=== PATIENT | female | born 1975 | race Caucasian/White ===

== ENCOUNTER 2024-08-12 08:01 | Outpatient (REF) | payer OTHER, SELFPAY | END 2024-08-12 08:02 | disposition home or self-care (01) | LOC: HO.XRAY 08:01 | PROVIDERS: Visit Provider Physician Assistant | DX: M25.522 Pain in left elbow (principal) | CPT/HCPCS: 73080 ==

== ENCOUNTER → 2024-08-12 08:07 | Outpatient (BNV) | payer OTHER, SELFPAY | PROVIDERS: Visit Provider Radiology Diagnostic Radiology | DX: M25.522 Pain in left elbow (principal) | CPT/HCPCS: 73080 ==

== ENCOUNTER 2024-08-12 08:28 | Outpatient (AMB) | payer OTHER, SELFPAY ==
--- NOTE | 2024-08-12 08:35 | MHC.OFFVIS ---
Intake Visit Reasons: FC - Left radial head fx,WC 07/19/24 Intake Note: Emy is a 49 year old right hand dominant female who presents today for a evaluation of her left radial head fx, DOI 07/19/24. Patient reports she was at work taking her trash out and she was walking towards the trash bin and slipped on black ice. She mentions still having pain in her elbow her pain level is a 7/10 on the pain scale today. Patient is also having pain and tingling sensation in her back and lower back. Patient had tried Tylenol and Motrin with mild relief. Allergies No Known Allergies Allergy (Verified 08/12/24 08:40) HPI HPI FC - Left radial head fx,WC 07/19/24: Details: Ms. Harris is a 49-year-old female who presents to the office today after a slip and fall on black ice on 07/19/2024. She reports that she hit her lower back and left elbow. She is right-hand dominant. She has had some soreness about the left elbow since the date of injury. She was seen at an urgent care office where she was told that she had a radial head fracture and to follow up with orthopedics for further evaluation and treatment. 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 Tenderness to palpation over the lateral epicondyle. Able to perform full flexion, extension, pronation and supination without limitations. NVI. Assessment & Plan Assessment & Plan (1) Avulsion fracture of bone: Code(s): T14.8XXA - Other injury of unspecified body region, initial encounter Category: Medical (2) Left elbow contusion: Code(s): S50.02XA - Contusion of left elbow, initial encounter Category: Medical Plan Ms. Harris is a 49-year-old female who presents to the office today after a slip and fall on black ice on 07/19/2024. She reports that she hit her lower back and left elbow. She is right-hand dominant. She has had some soreness about the left elbow since the date of injury. She was seen at an urgent care office where she was told that she had a radial head fracture and to follow up with orthopedics for further evaluation and treatment. 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 While the office today I discussed the role of performing gentle range of motion. Patient does have full range of motion in all planes in regards to the left elbow. I did provide her with a work note for light duty no lifting pushing or pulling greater than 2-5 lb for the next 4 weeks. I would like to see her in 4 weeks repeat x-rays, sooner if needed. X-rays of the left elbow which were obtained while in the office today and were reviewed by me, Melani Beltran PA-C, revealed an avulsion fracture of the proximal ulna. Orders: Orders XR elbow LT min 3V Today M25.529 - Pain in unspecified elbow Coding Level of Care Code New Pt Level 4 (12744) Diagnoses Avulsion fracture of bone T14.8XXA Left elbow contusion S50.02XA
--- OUTSIDE RECORDS SUMMARY | 2024-08-12 08:42 | XMS_ITS | Clinical Summary ---
Author Organization [facility] Address [address] [place] [address] Care Team Providers Care Career Services Representative Name Role Phone Anna Bailey MD Primary Care Prov ider Allergies Active Allergy Reactions Criticality Noted Date Comments Cat Dander 02/27/2013 Dog Dander 02/27/2013 Other 02/27/2013 Seasonal Allergies Medications naproxen (NAPROSYN) 250 mg tablet Take 1 tablet by mouth 2 times daily (with meals). 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-MRI recommended Hypercholesteremia 12/09/2009 Allergic rhinitis 10/23/2009 GERD (gastroesophageal reflux disease) 0 Morbid obesity 10/23/2009 Immunizations Name Administration Dates Next Due Hepatitis B (Aziyepa-C-Eknpa , Recombivax HB-Adult) 19yo and older 07/05/2021,02/09/2014,01/08/2014,2009 Influenza trivalent, with preservative (Fluzone; Afluria) 6mo and older 04/06/2021 MMR, measles mumps and rubel la Live (Priorix; M-M-R II) 12mo and older 12/09/2009 Td Tetanus diptheria (Tdvax) 7yo and older 09/13/2020 Tdap Tetanus diptheria acell ular pertussis (Boostrix; Adacel) 7yo and older 10/22/2009 Surgical History Surgery Date Site/Laterality Comments TUBAL LIGATION 1997 PROCEDURE: HISTORICAL TUBAL LIGATION WISDOM TOOTH EXTRACTION PROCEDURE: HISTORICAL WISDOM TEETH EXTRACTION Medical History Medical History Date Comments 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/04/2017 DX:Ajay fair of basal ganglia; COMMENT: 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-MRI recommended Covid-19 DX:COVID-19 Family History Medical History Relation Name Comments Hypertension Father ?depression Other: hep c Father Depression Mother polyps Other cancer Paternal Grandmother metasta tic unknown primary Colon polyps Sister Relation Name Status Comments Brother Alive Daughter Alive Father Alive Maternal Grandfather Maternal Grandmother Mother Alive Paternal Grandfather Paternal Grandmother Sister Alive Son Alive Social History Tobacco Use Types Packs/Day Years Used Date Smoking Tobacco: Never Smokeless Tobacco: Never Alcohol Use Standard Drinks/Week Comments Yes 0 (1 standard drink = 0.6 oz pur e alcohol) Comments Unknown Sex and Gender Information Value Date Recorded Sex Assigned at Not on file Legal Sex Female 3:00 PM EST Gender Identity Not on file Sexual Orientation Not on file Obstetrics History Plan of Treatment Health Maintenance Due Date Last Done Comments DTaP,Tdap,and Td Vaccines (3 - Td or Tdap) 03/16/2021 09/13/2020, 10/22/2009 Colorectal Cancer Screening: Colonoscopy 05/31/2022 Depression Screening 05/31/2022 Social Influencers of Health Screening 05/31/2022 Breast Cancer Screening 11/03/2022 11/03/2020 Pneumococcal Vaccine: 50+ Years (1 of 1 - PCV) 2023 Zoster Vaccines (1 of 2) 2023 COVID-19 Vaccine (3 - 2023- season) 2024 07/27/2020, 07/06/2020 Influenza Vaccine (#1) 2024 04/06/2021 Cholesterol Screening (Lipid Panel) 09/13/2025 09/13/2020 Cervical Cancer Screening: HPV 10/26/2025 10/26/2020 MMR Vaccines Aged Out 12/09/2009 No longer eligi ble based on patient's age to complete this topic HIV Screening Completed 10/26/2020 Hepatitis C Screening Completed 10/26/2020 Hepatitis B Vaccines Completed 07/05/2021, 02/09/2014, 01/08/2014, Additional history exists HIB Vaccines Aged Out No longer eligi ble based on patient's age to complete this topic HPV Vaccines Aged Out No longer eligi ble based on patient's age to complete this topic Hepatitis A Vaccines Aged Out No long er eligible based on patient's age to complete this topic IPV Vaccines Aged Out No longer eligi ble based on patient's age to complete this topic Meningococcal ACWY Vaccine Aged Out N o longer eligible based on patient's age to complete this topic Meningococcal B Vacine Aged Out No lo nger eligible based on patient's age to complete this topic Pneumococcal Vaccine: Pediatrics (0 to 5 Years) and At-Risk Patients (6 to 64 Years) Aged Out No longer eligible based on patient's age to complete this topic RSV Immunization Patients Under 20 months Aged Out No longer eligible based on patient's age to complete this topic Varicella Vaccines Aged Out No longer eligible based on patient's age to complete this topic Procedures Procedure Name Priority Date/Time Associated Diagnosis Comments SCR MAMMO BI INCL CAD Routine 11/03/2020 10:02 AM EDT Encounter for screening mammogram for malignant neoplasm of breast HPV Routine 10/26/2020 HEPATITIS C SCREENING Routine 10/26/2020 HIV SCREENING Routine 10/26/2020 LIPID PANEL Routine 09/13/2020 from Last 3 Months or Most Recently Relevant to Health Maintenance Results * SCR MAMMO BI INCL CAD (11/03/2020 10:02 AM EDT) Anatomical Region Laterality Modality Radiographic Soraida ging 09/13/2020 9:34 AM EDT Narrative 11/04/2020 9:13 AM EDT This is a summary report. The complete report is available in the patient's medical record. If you cannot access the medical record, please contact the sending organization for a detailed fax or copy. Baseline screening, full field digital mammography, reviewed with CAD. ??The breasts are composed of fatty and fibroglandular tissue. ??No suspicious mass, architectural distortion or suspicious calcifications are identified. IMPRESSION: : No mammographic evidence of malignancy. BIRADS 1-Negative; N. 5 year breast cancer risk assessment 1.0 % Lifetime breast cancer risk assessment 10.3 % Breast cancer risk category Low (<15%) Procedure Note Lily Venegas MD - 06/20/2022 This is a summary report. The complete report is available in thepatient's medical record. If you cannot access the medical record, pleasecontact the sending organization for a detailed fax or copy. Baseline screening, full field digital mammography, reviewed with CAD.The breasts are composed of fatty and fibroglandular tissue. Nosuspicious mass, architectural distortion or suspicious calcifications areidentified. IMPRESSION: : No mammographic evidence of malignancy. BIRADS 1-Negative; N. 5 year breast cancer risk assessment 1.0 % Lifetime breast cancer risk assessment 10.3 % Breast cancer risk category Low (<15%) Result [facility] Yoanna De La Paz WINDOWS SYSTEMS ENGINEER IMG XR PROCEDURES Final Resul t * Cervical Cancer Screening: HPV (10/26/2020) [facility] Cervical Cancer Screening: HPV negative, abstracted Result [facility] Final Result * HIV Screening (10/26/2020) [facility] HIV Screening abstracted Result [facility] Final Result * Hepatitis C Screening (10/26/2020) [facility] Hepatitis C Screening abstracted Result [facility] Final Result * (ABNORMAL) Lipid panel (09/13/2020) [facility] LDL/HDL Ratio 3 0 - 4 Triglycerides 105 0 - 150 mg/dL Cholesterol 179 0 - 200 mg/dL HDL 57 >=40 mg/dL LDL Cholesterol 101(A) 0 - 100 mg/dL Blood Venous blood specimen / Unknown Result [facility] LAB BLOOD ORDERABLES Xiao l Result from Last 3 Months or Most Recently Relevant to Health Maintenance Care Teams Career Services Representative Relationship Specialty Start Date End Date Anna Bailey MD PCP - General Internal Medicine 12/30/20
== END 2024-08-12 11:14 | disposition home or self-care (01) ==
PROVIDERS: PCP Internal Medicine; Visit Provider Physician Assistant
DX: S50.02XA Contusion of left elbow, initial encounter (principal); S52.002A Unspecified fracture of upper end of left ulna, initial encounter for closed fracture; W00.0XXA Fall on same level due to ice and snow, initial encounter; Z04.2 Encounter for examination and observation following work accident
CPT/HCPCS: 99204

== ENCOUNTER 2024-09-11 09:07 | Outpatient (REF) | payer OTHER, SELFPAY ==
--- NOTE | ~2024-09-11 | XR_ITS ---
EXAMINATION: XR ELBOW, LEFT CLINICAL INFORMATION: M25.529 - Pain in unspecified elbow COMPARISON: 08/12/2024 TECHNIQUE: AP, lateral, and oblique views of the left elbow. FINDINGS: No fracture, dislocation, or suspicious bone lesion. Normal bone mineralization. Normal alignment. Minimal spurring of the coronoid process. Joint spaces are preserved. Epicondyles appear normal. No joint effusion. Soft tissues appear normal. XR/XR elbow LT min 3V IMPRESSION: No acute findings left elbow. No change. Electronically signed by: Harman Piña MD 09/11/2024 10:48 AM EDT
--- OUTSIDE RECORDS SUMMARY | 2024-09-12 09:43 | XMS_ITS | Clinical Summary ---
Author Organization [facility] Address [address] [place] [address] Care Team Providers Care Fha Underwriter Name Role Phone Anna Bailey MD Primary [...] Name Administration Dates Next Due Hepatitis B (Ftyzyae-Q-Qaxmw , Recombivax HB-Adult) 19yo and older 07/05/2021,02/09/2014,01/08/2014,2009 [...] Breast cancer risk category Low (<15%) Result [facility] Yoanna De La Paz LODGING FACILITIES MANAGER IMG XR PROCEDURES Final Resul t * Cervical Cancer Screening: HPV (10/26/2020) [facility] Cervical Cancer Screening: HPV negative, abstracted Result [facility] MAINTENANCE Final Result * HIV Screening (10/26/2020) [facility] HIV Screening abstracted Result [facility] MAINTENANCE Final Result * Hepatitis C Screening (10/26/2020) [facility] Hepatitis C Screening abstracted Result [facility] MAINTENA[facility]CE Final Result * (ABNORMAL) Lipid panel (09/13/2020) [facility] LDL/HDL Ratio 3 0 - 4 Triglycerides 105 0 - 150 mg/dL Cholesterol 179 0 - 200 mg/dL HDL 57 >=40 mg/dL LDL Cholesterol 101(A) 0 - 100 mg/dL Blood Venous blood specimen / Unknown Result [facility] LAB BLOOD ORDERABLES Xiao l Result from Last 3 Months or Most Recently Relevant to Health Maintenance Care Teams Fha Underwriter Relationship Specialty Start Date End Date Anna Bailey MD PCP - General Internal Medicine 12/30/20
== END 2024-09-11 09:08 | disposition home or self-care (01) ==
LOC: HO.HOSX 09:07
PROVIDERS: Visit Provider Physician Assistant
DX: S52.122D Displaced fracture of head of left radius, subsequent encounter for closed fracture with routine healing (principal); S50.02XD Contusion of left elbow, subsequent encounter
CPT/HCPCS: 73080; 99212

== ENCOUNTER 2024-09-11 09:37 | Outpatient (AMB) | payer OTHER, SELFPAY ==
--- NOTE | 2024-09-11 09:49 | A.OFFVIS_ITS ---
Intake Visit Reasons: OV-Left radial head fx,WC 07/19/24-w/xrays Intake Note: Emy is a 49 year old right hand dominant female who presents today for a evaluation of her left Avulsion fracture radial head fx, DOI 07/19/24. Patient reports her pain has been off and on depending on what so does. She mentions th at her pain is a 5/10 on the pain scale. Allergies No Known Allergies Allergy (Verified 09/11/24 09:54) HPI HPI OV-Left radial head fx,WC 07/19/24-w/xrays: Details: Ms. Harris is a right-hand dominant 49-year-old female who presents to the office today for routine follow-up status post left proximal ulnar avulsion fracture that occurred on . This is a workman's comp injury. Since her last appointment, she reports that her pain has been gradually improving and she has minimal difficulty with range of motion. She does have occasional pain dependent on activity level. Overall she is doing very well. 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 No tenderness to palpation over the lateral epicondyle. Able to perform full flexion, extension, pronation and supination without limitations. NVI. Assessment & Plan Assessment & Plan (1) Avulsion fracture of bone: Code(s): T14.8XXA - Other injury of unspecified body region, initial encounter Category: Medical (2) Left elbow contusion: Code(s): S50.02XA - Contusion of left elbow, initial encounter Category: Medical Plan Ms. Harris is a 49-year-old female who presents to the office today after a slip and fall on black ice on 07/19/2024. She reports that she hit her lower back and left elbow. She is right-hand dominant. Since her last appointment the patient has been performing gentle range of motion. Patient does have full range of motion in all planes in regards to the left elbow. She feels as though her symptoms are improving. We discussed the role of physical therapy however the patient has full range of motion and her symptoms are improving therefore this has been deferred at this time. I did provide her a work note to remain out of work for the next 2 weeks and then she can return back full-time regular duty. X-rays of the left elbow which were obtained while in the office today and were reviewed by me, Melani Beltran PA-C, revealed an avulsion fracture of the proximal ulna with routine healing. Orders: Orders XR elbow LT min 3V Today M25.529 - Pain in unspecified elbow Coding Level of Care Code Est Pt Level 3 (75520) Diagnoses Avulsion fracture of bone T14.8XXA Left elbow contusion S50.02XA
--- OUTSIDE RECORDS SUMMARY | 2024-09-11 11:31 | XMS_ITS | Encounter Summary ---
Author Organization [facility] Address [address] [place] [address] Care Team Providers Care Bail Bond Agent Name Role Phone Luca Antonio MD Primary Care Provider Unavailable Elda Acosta MD Primary Care Provider Unavaila benjamin Bailey Ch MD Primary Care Provider [phone] Encounter Details Date Type Department Care Team Description 11/06/2016 Release of Information Medical Records [address] [place] [id number] Abstract, Provider Social History Tobacco Use Types Packs/Day Years Used Date Smoking Tobacco: Never Smokeless Tobacco: Never Alcohol Use Standard Drinks/Week Comments Yes 0 (1 standard drink = 0.6 oz pur e alcohol) once weekly- 2 drinks Alcohol Habits Answer Date Recorded How often do you have a drink containing alcohol ? 2-4 times a month 09/13/2020 How many drinks containing a lcohol do you have on a typical day when you are drinking? 1 or 2 09/13/2020 How often do you have six or more drinks on one occasion? Never 09/13/2020 Social Isolation Answer Date Recorded In a typical week, how many times do you talk on the phone with family, friends, or neighbors? Twice a week 09/13/2020 How often do you get together with friends or re latives? Twice a week 09/13/2020 How often do you attend anglican or protestant serv ices? Not asked Do you belong to any clubs o r organizations such as anglican groups, unions, fraternal or athletic groups, or school groups? Not asked How often do you attend meet ings of the clubs or organizations you belong to? Not asked Are you now , , , , never or living with a partner? Not asked Physical Activity Answer Date Recorded On average, how many days pe r week do you engage in moderate to strenuous exercise (like walking fast, running, jogging, dancing, swimming, biking, or other activities that cause a light or heavy sweat)? 0 days 09/13/2020 On average, how many minutes do you engage in exercise at this level? 0 min 09/13/2020 Stress Answer Date Recorded Do you feel stress - tense, restless, nervous, or anxious, or unable to sleep at night because your mind is troubled all the time - these days? To some extent 09/13/2020 Financial Resource Strain Answer Date R ecorded How hard is it for you to pa y for the very basics like food, housing, medical care, and heating? Not hard at all 09/13/2020 Intimate Partner Violence Answer Date R ecorded Within the last year, have y ou been afraid of your partner or ex-partner? No 09/13/2020 Within the last year, have y ou been humiliated or emotionally abused in other ways by your partner or ex-partner? No Within the last year, have y ou been kicked, hit, slapped, or otherwise physically hurt by your partner or ex-partner? No 09/13/2020 Within the last year, have y ou been raped or forced to have any kind of sexual activity by your partner or ex-partner? No 09/13/2020 Food Insecurity Answer Date Recorded Within the past 12 months, y ou worried that your food would run out before you got money to buy more. Never true 09/13/2020 Within the past 12 months, t he food you bought just didn't last and you didn't have money to get more. Never true 09/13/2020 Transportation Needs Answer Date Record ed In the past 12 months, has l ack of transportation kept you from medical appointments or from getting medications? No 08/30 In the past 12 months, has l ack of transportation kept you from meetings, work, or getting things needed for daily living? No 09/13/2020 Sex Assigned at Date Recorded Not on file documented as of this encounter Plan of Treatment Not on file documented as of this encounter Visit Diagnoses Not on filedocumented in this encounter Care Teams Bail Bond Agent Relationship Specialty Start Date End Date Luca Antonio MD PCP - General Internal Medicine 10/05/1601/31 Elda Acosta MD PCP - General Internal Medicine 02/27/19 12/29/20 Melissa Bailey MD [address] [place] [id number] PCP - General Internal Medicine 12/30/20 documented as of this encounter
--- OUTSIDE RECORDS SUMMARY | 2024-09-11 11:31 | XMS_ITS | Encounter Summary ---
Author Organization [facility] Address [address] [place] [address] Care Team Providers Care Environmental Marketer Name Role Phone Elda Acosta MD Primary Care Provider Kong Coleman MD Primary Care Provider Luca Crawford MD Primary Care Provider Unavailable Elda Acosta MD Primary Care Provider Kandace Bailey Ch MD Primary Care Provider [phone] Reason for Visit * Reason Comments E-prescribe Rx Request Encounter Details Date Type Department Care Team Description 10/10/2015 Refill Adult Medicine [facility] [address] [place] [address] Ernie Bowman PA-C [address] [place] [address] E-prescribe Rx Request Social History Tobacco Use Types Packs/Day Years [...] week 09/13/2020 How often do you attend adventist or evangelical serv ices? Not asked Do you belong to any clubs o r organizations such as adventist groups, unions, fraternal or athletic groups, or [...] on file documented as of this encounter Miscellaneous Notes * Telephone Encounter - Shireen Mistry - 10/11/2015 4:25 PM EDT Lmom for pt to call and schedule a f/u appt * Telephone Encounter - Elda Acosta MD - 10/11/2015 4:07 PM EDT I have not prescribed this for her and she should not continue this without follow up for her safety. I have not seen her since 2013 and suggest she schedule a follow up. Can use otc aleve which is lower dose and less side effects until appointment. Please advise * Telephone Encounter - Shireen Mistry - 10/11/2015 10:32 AM EDT Patient would like script to be: E-PRESCRIBED/FAXED TO PHARMACY WHEN WAS THE PATIENT'S LAST APPOINTMENT IN ADULT MEDICINE? 05-25-2015 WHEN WAS THE LAST TIME THE PATIENT SAW THEIR PCP? 01-08-2014 Does patient have an upcoming appointment? Yes 12-08-2015 (THE MEDICATION REQUESTED IS ON THE MED LIST ABOVE) All of the medications requested were on the CURRENT MEDS list Did you check the Pharmacy information above?: YES Patient wants: 30 -day supply Is this a mail order prescription request ? NO Patients current insurance carrier is: Payor: [email or web address] FFS / Plan: FFS HMO $0 [id number] / Product Type: MEDICAID RISK documented in this encounter Plan of Treatment Not on file documented as of this encounter Visit Diagnoses Not on filedocumented in this encounter Care Teams Environmental Marketer Relationship Specialty Start Date End Date Elda Acosta MD PCP - General 01/11/09 07/01/16 Kong Javier MD PCP - General Cardiovascular Disease 07/02/16 Luca Antonio MD PCP - General Internal Medicine 10/05/1601/31 Elda Acosta MD PCP - General Internal Medicine 02/27/19 12/29/20 Melissa Bailey MD [address] [place] [id number] PCP - General Internal Medicine 12/30/20 documented as of this encounter
--- OUTSIDE RECORDS SUMMARY | 2024-09-11 11:32 | XMS_ITS ---
Author Name [facility] Organization Unknown Encounters Encounter Type Encounter Reason Primary Diagnosis Location Date Ambulatory [facility] [place] 08/05/2024 Ambulatory [facility] [place] 08/04/2024 Ambulatory [facility] [place] 08/04/2024 Ambulatory [facility] [place] 08/04/2024
--- OUTSIDE RECORDS SUMMARY | 2024-09-11 11:32 | XMS_ITS | Encounter Summary ---
Author Organization [facility] Address [address] [place] [address] Care Team Providers Care Industrial Hygenist Name Role Phone Elda Acosta MD Primary Care Provider Kandace Bailey Ch MD Primary Care Provider [phone] Encounter Details Date Type Department Care Team Description 02/25/2020 Night Triage Doc Medical Records [address] [place] [address] Abstract, Provider Social History Tobacco Use Types [...] week 09/13/2020 How often do you attend buddhist or scientology serv ices? Not asked Do you belong to any clubs o r organizations such as buddhist groups, unions, fraternal or athletic groups, or [...] on filedocumented in this encounter Care Teams Industrial Hygenist Relationship Specialty Start Date End Date Elda Acosta MD PCP - General Internal Medicine 02/27/19 12/29/20 Melissa Bailey MD [address] [place] [id number] PCP - General Internal Medicine 12/30/20 documented as of this encounter
--- OUTSIDE RECORDS SUMMARY | 2024-09-11 11:32 | XMS_ITS | Encounter Summary ---
Author Organization [facility] Address [address] [place] [address] Care Team Providers Care Icer Hand Name Role Phone Luac Antonio MD Primary Care Provider Unavailable Elda Acosta MD Primary Care Provider Unavaila benjamin Bailey Ch MD Primary Care Provider [phone] [phone] Reason for Visit * Reason Onset Date Comments REFERRAL 01/20/2019 Podiatry Encounter Details Date Type Department Care Team Description 01/20/2019 Telephone Podiatry - [address] [address] Luca Antonio MD REFERRAL (Podiatry) Social History Tobacco Use Types Packs/Day Years [...] week 09/13/2020 How often do you attend mormon or baptism serv ices? Not asked Do you belong to any clubs o r organizations such as mormon groups, unions, fraternal or athletic groups, or [...] encounter Miscellaneous Notes * Telephone Encounter - Vilma Osorio - 01/20/2019 2:45 PM EDT Patient has urgent referral to podiatry and needs to be referred out for closer appointment-see referral, thank you documented in this encounter Plan of Treatment Not on file documented as of this encounter Visit Diagnoses Not on filedocumented in this encounter Care Teams Icer Hand Relationship Specialty Start Date End Date Luca Antonio MD PCP - General Internal Medicine 10/05/1601/31 Elda Acosta MD PCP - General Internal Medicine 02/27/19 12/29/20 Melissa Bailey MD [facility] [place] [address] PCP - General Internal Medicine 12/30/20 documented as of this encounter
--- OUTSIDE RECORDS SUMMARY | 2024-09-11 11:32 | XMS_ITS | Encounter Summary ---
Author Organization [facility] Address [address] [place] [address] Care Team Providers Care Tinsel Machine Operator Name Role Phone Melissa Bailey MD Primary Care Provider [phone] [phone] Reason for Visit * Reason Onset Date Comments Work note 01/25/2021 Encounter Details Date Type Department Care Team Description 01/25/2021 Telephone Adult Medicine [facility] [address] [place] [address] Melissa Bailey, [address] [place] [address] Work note Social History Tobacco Use Types Packs/Day Years [...] week 09/13/2020 How often do you attend shinto or anabaptism serv ices? Not asked Do you belong to any clubs o r organizations such as shinto groups, unions, fraternal or athletic groups, or [...] Assigned at Date Recorded Not on file COVID-19 Exposure Response Date Recorded In the last month, have you been in contact with someone who was confirmed or suspected to have Coronavirus / COVID-19? No / Unsure 01/07/2021 3:55 PM EDT documented as of this encounter Miscellaneous Notes * Telephone Encounter - January Ramos M.A. 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 * Telephone Encounter - Sveta Octaviano - 01/25/2021 10:17 AM EDT Work note is for: Return to Work Note Has patient been seen for the reason they were absent from work? Yes For what medical reason was/is patient out of work?: unknown to BSR If Yes, by whom?: Porsche Tena Date patient seen: 01/24/2021 What dates does the patient need the note to cover: Beginning date: 12/05/2020 End Date: 01/25/2021 If note for return to work, what is return date: 01/26/2021 If note is to return to work, are there restrictions? No. 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
--- OUTSIDE RECORDS SUMMARY | 2024-09-11 11:32 | XMS_ITS | Encounter Summary ---
Author Organization [facility] Address [address] [place] [address] Care Team Providers Care Guidance Services Coordinator Name Role Phone Melissa Bailey MD Primary Care Provider [phone] Encounter Details Date Type Department Care Team Description 01/10/2021 Contract Loader Report Medical Records [address] [place] [address] Abstract, Provider Social History Tobacco Use Types [...] PM EDT documented as of this encounter Plan of Treatment Not on file documented as of this encounter Visit Diagnoses Not on filedocumented in this encounter Care Teams Guidance Services Coordinator Relationship Specialty Start Date End Date Melissa Bailey MD [address] [place] [address] PCP - General Internal Medicine 12/30/20 documented as of this encounter
--- OUTSIDE RECORDS SUMMARY | 2024-09-11 11:32 | XMS_ITS | Data Portability ---
Author Organization [facility], [facility], [facility] Address [address] [place] [address] Assessment No assessment recorded. Plan of Treatment Reminders Order Date Submit Date Provider Last Modified By Organization Details Last Modified Time Details Appointments None record ed. Lab None record ed. Referral None record ed. Procedures None record ed. Surgeries None record ed. Imaging None record ed. Medication Orders None record ed. Patient TargetsNo targets recorded. Patient Instructions Encounter Date Encounter Id Patient Instructions Last Modified By Organization Details Last Modified Time 05/09/2021 [id number] Patient is encouraged to follow-up with PCP for all primary care, and chronic disease management. Patient is also encouraged to contact primary care for initial directive for acute illness management, and utilize the walk-in clinic, when the PCP is not available. [email or web address] Not available 05/09/2021 08:57:30 Reason for Referral None Reported. Procedures Surgical History Date Name Laterality Status Provider Name and Address Organization Details Recorded Time 0 Date of Last Mammogram completed Aleisha Kathleen [facility], [facility] 05/09/2021 08:32:00 Imaging Results None recorded. Procedure Notes None recorded. Medical Equipment None Reported. Allergies No known drug allergies Medications Not known to be on any medication Vitals Date Recorded Body weight Body mass index (BMI) Body height Body temperature Heart rate Oxygen saturation Oxygen saturation in Arterial blood by Pulse oximetry Respiratory rate Systolic blood pressure Diastolic blood pressure Provider Name and Address Organization Details Last Updated DateTime 312700. 48 g 39.1 kg/m2 160.02 cm 97.5 [degF] 70 /min 96 % 96 % 16 /min 134 mm[Hg] 86 mm[Hg] Aleisha Kathleen [facility], [facility] 08:42:39 Social History Question Answer Notes LastModified by Organizat ion Details LastModified Time Tobacco Smoking Status Never Smoker Aleisha Hever garcia [facility] Phys[facility], [facility] 05/09/2021 08:32:07 Do You Have An Advance Directive? No Information not available 05/09/2021 What Is Your Level Of Alcohol Consumption? Occasional Information not available 05/09/2021 What Is Your Level Of Caffeine Consumption? Moderate [email or web address] Information not available 05/09/2021 What Type Of Diet Are You Following? REGULAR [email or web address] Information not available 05/09/2021 What Is The Highest Grade Or Level Of School You Have Completed Or The Highest Degree You Have Received? LD97443-1 [email or web address] Information not available 05/09/2021 What Is Your Relationship Status? Single [email or web address] Information not available 05/09/2021 Are You Sexually Active? No [email or web address] Information not available 05/09/2021 Do You Or Have You Ever Used Smokeless Tobacco? Never Used Smokeless Tobacco Information not available 05/09/2021 Sex: Unknown Functional Status Question Answer Note LastModified by Organization D etails LastModified Time What is your exercise level? Moderate [email or web address] Information not available 05/09/2021 Mental Status None recorded. Family History Nothing Reported. Medical History Condition Response Cancer (location) N Other N Gout N Thyroid Disease N Kidney Stones N Emphysema/COPD N Measles/Mumps N Arthralgia N Yeast Infection N Sexually Transmitted Disease N Blood Clots N Wheezing N Depression N Prostate Problems N Vascular Disease N Rash/Skin Condition N Amputation (location) N Parkinson's N Paralysis N Headaches/Migraines N Cardiac Pacemaker/defibrillator N Nerve Damage / Neuropathy N Arthritis N Sleep disorder/Insomnia N Heart disease / Heart Attack N Artificial Joint N Crohn's Disease N HIV/AIDS N Shortness of Breath N Stroke/TIA N Colon Problems N High Cholesterol N Serious Injuries N Dialysis N Kidney Disease N Memory Loss/Alzheimer's N Chronic Cough N High blood pressure N Gallbladder disease N Congestive heart failure N Falls N Blood Thinner Treatment N Alcohol Overuse N Hormone Replacement N Nervous Breakdown N Jensen's Esophagus N Anemia N Chest Pain N Urinary Problems N Colon Polyps N Gastritis N Hospitalizations (other than operations) N Back pain N Diabetes N Rheumatic Fever N Bleeding Disorder N Cardiac Arrhythmias /irregular heart rat e N Osteopenia/Osteoporosis N Heart Murmur N inflammation of vein N Phlebitis N Anxiety/Stress N Asthma N Vision Problems N Erectile / Sexual Dysfunction N Epilepsy N Morning Cough N Ostomies (location) N Seizures N Jaundice N Sleep Apnea N Hepatitis N Cirrhosis N Fainting N GERD/Ulcer N Bronchitis N Chicken Pox N Allergies (other than meds) N Gynecological History Statement/Question Response Abnormal Pap N Flow Moderate Date of Last Mammogram 12/25/1999 Frequency of Cycle (Q days) 26 27 28 29 30 Date of LMP 04/27/2021 Menses Monthly Y STIs/STDs N Duration of Flow (days) 7 Age at Menarche 11 Age at First Child 16 Obstetrics History GPAL:G 0 P 0 0 0 0 Past Encounters Encounter ID Performer Location Encounter Start Date Encounter Closed Date Diagnosis/Indication Diagnosis SNOMED-CT Code Diagnosis ICD10 Code Diagnosis Note [id number] QUYNH SWARTZ [facility] [address] [place] [address] 05/09/2021 08:10:18 05/09/2021 13:27:12 History and physical examination, pre-employment 097719906 Z02.1 Acute, asymptomat ic; initial visit. Pre Employment H&P performed and form filled out appropriat mariangel/entire ly. Anticipato ry guidance provided regarding developmen t, safety and nutrition. 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) Problem list, past medical, surgical, social and family history are reviewed and updatedyes All health maintenance tasks and referrals are detailed in QM tab and assessment/plan areayesNotes:Report s that she is UTD re: immunizations CORONAVIRUS SCREENING TOOL ?Are you experiencing any NEW symptom(s) listed below that is not due to another health problem ?None of the below ?Is anyone else in your household experiencing any NEW symptoms ?No ?In the past 2 weeks did you have close contact (within 6 feet for at least 15 minutes) with someone with symptoms of COVID-19 or who tested positive for COVID-19 ?No ?In the past 2 weeks have you been tested for COVID-19 ?Yes, I tested negative ?Why did you get tested? Please select all that apply ?Required testing for school, travel, or work ?In the past 2 weeks has someone in your household tested positive for COVID-19 ?No ?Have you ever received a dose of COVID-19 vaccine?Yes ?Which vaccine product did you receive?Pfizer ?How many doses have you received?2 doses Imported from [facility] on 05/09/2021 QUYNH SWARTZ [address], [place], [address], [facility], [facility] 05/09/2021 09:02:55 OBGyn Episode No OBEpisode recorded.
--- OUTSIDE RECORDS SUMMARY | 2024-09-11 11:32 | XMS_ITS | Encounter Summary ---
Author Organization [facility] Address [address] [place] [address] Care Team Providers Care Media Liaison Officer Name Role Phone Elda Acosta MD Primary Care Provider Kandace Bailey Ch MD Primary Care Provider [phone] Encounter Details Date Type Department Care Team Description 12/16/2020 Rn Cvor Report Medical Records [address] [place] [id number] Abstract, Provider Social History Tobacco Use Types [...] week 09/13/2020 How often do you attend samaritan or anabaptism serv ices? Not asked Do you belong to any clubs o r organizations such as samaritan groups, unions, fraternal or athletic groups, or [...] have Coronavirus / COVID-19? No / Unsure 12/06/2020 9:28 AM EDT documented as of this encounter Plan of Treatment Not on file documented as of this encounter Visit Diagnoses Not on filedocumented in this encounter Care Teams Media Liaison Officer Relationship Specialty Start Date End Date Elda Acosta MD PCP - General Internal Medicine 02/27/19 12/29/20 Melissa Bailey MD [address] [place] [address] PCP - General Internal Medicine 12/30/20 documented as of this encounter
--- OUTSIDE RECORDS SUMMARY | 2024-09-11 11:32 | XMS_ITS | Clinical Summary ---
Author Organization [facility] Address [address] [place] [address] Care Team Providers Care Flight Physician Name Role Phone Anna Bailey MD Primary [...] Name Administration Dates Next Due Hepatitis B (Subvvcq-G-Igkdw , Recombivax HB-Adult) 19yo and older 07/05/2021,02/09/2014,01/08/2014,2009 [...] Health Maintenance Due Date Last Done Comments Colorectal Cancer Screening: Colonoscopy 05/31/2022 Depression Screening 05/31/2022 Social Influencers of Health Screening 05/31/2022 Breast Cancer Screening 11/03/2022 11/03/2020 Pneumococcal Vaccine: 50+ Years (1 of 1 - PCV) 2023 Zoster Vaccines (1 of 2) 2023 COVID-19 Vaccine (3 - season) 2024 07/27/2020, 07/06/2020 Influenza Vaccine (#1) 2024 04/06/2021 Cholesterol Screening (Lipid Panel) 09/13/2025 09/13/2020 Cervical Cancer Screening: HPV 10/26/2025 10/26/2020 DTaP,Tdap,and Td Vaccines (3 - Td or Tdap) 09/13/2030 09/13/2020, 10/22/2009 MMR Vaccines Aged Out 12/09/2009 No longer [...] Breast cancer risk category Low (<15%) Result [facility] Yoanna De La Paz RUG RENOVATOR IMG XR PROCEDURES Final Resul t * Cervical Cancer Screening: HPV (10/26/2020) Health system Cervical Cancer Screening: HPV negative, abstracted Result [facility] MAIN[facility]CE Final Result * HIV Screening (10/26/2020) [facility] HIV Screening abstracted Result [facility] Final Result * Hepatitis C Screening (10/26/2020) Health system Hepatitis C Screening abstracted Result [facility] Final Result * (ABNORMAL) Lipid panel (09/13/2020) [facility] LDL/HDL Ratio 3 0 - 4 Triglycerides 105 0 - 150 mg/dL Cholesterol 179 0 - 200 mg/dL HDL 57 >=40 mg/dL LDL Cholesterol 101(A) 0 - 100 mg/dL Blood Venous blood specimen / Unknown Result [facility] LAB BLOOD ORDERABLES Xiao l Result from Last 3 Months or Most Recently Relevant to Health Maintenance Care Teams Flight Physician Relationship Specialty Start Date End Date Anna Bailey MD PCP - General Internal Medicine 12/30/20
--- OUTSIDE RECORDS SUMMARY | 2024-09-11 11:32 | XMS_ITS | Encounter Summary ---
Author Organization [facility] Address [address] [place] [address] Care Team Providers Care Construction Specialist Name Role Phone Elda Acosta MD Primary Care Provider Jt benjamin Bailey Ch MD Primary Care Provider [phone] Encounter Details Date Type Department Care Team Description 12/17/2020 [facility] Adult Medicine [facility] [address] [place] [address] Elda Acosta MD Social History Tobacco Use Types Packs/Day Years [...] week 09/13/2020 How often do you attend mosque or temple serv ices? Not asked Do you belong to any clubs o r organizations such as mosque groups, unions, fraternal or athletic groups, or [...] on filedocumented in this encounter Care Teams Construction Specialist Relationship Specialty Start Date End Date Elda Acosta MD PCP - General Internal Medicine 02/27/19 12/29/20 Melissa Bailey MD [address] [place] [address] PCP - General Internal Medicine 12/30/20 documented as of this encounter
--- OUTSIDE RECORDS SUMMARY | 2024-09-11 11:32 | XMS_ITS | Encounter Summary ---
Author Organization [facility] Address [address] [place] [address] Care Team Providers Care Pomologist Name Role Phone Elda Acosta MD Primary Care Provider Kong Coleman MD Primary Care Provider Luca Crawford MD Primary Care Provider Unavailable Elda Acosta MD Primary Care Provider Kandace Bailey Ch MD Primary Care Provider [phone] [phone] Encounter Details Date Type Department Care Team Description 01/23/2014 Release of Information Medical Records [address] [place] [id number] Abstract, Provider Social History Tobacco Use Types Packs/Day Years Used Date Smoking Tobacco: Never Smokeless Tobacco: Never Alcohol Use Standard Drinks/Week Comments Yes 0 (1 standard drink = 0.6 oz pur e alcohol) occasional Alcohol Habits Answer Date Recorded How often [...] week 09/13/2020 How often do you attend confucianist or jain serv ices? Not asked Do you belong to any clubs o r organizations such as confucianist groups, unions, fraternal or athletic groups, or [...] on filedocumented in this encounter Care Teams Pomologist Relationship Specialty Start Date End Date Elda Acosta MD PCP - General 01/11/09 07/01/16 Kong Javier MD PCP - General Cardiovascular Disease 07/02/16 Luca Antonio MD PCP - General Internal Medicine 10/05/1601/31 Elda Acosta MD PCP - General Internal Medicine 02/27/19 12/29/20 Melissa Bailey MD [address] [place] [address] PCP - General Internal Medicine 12/30/20 documented as of this encounter
--- OUTSIDE RECORDS SUMMARY | 2024-09-11 11:32 | XMS_ITS | Encounter Summary ---
Author Organization [facility] Address [address] [place] [address] Care Team Providers Care Insurance Agency Manager Name Role Phone Elda Acosta MD Primary Care Provider Kandace Bailey Primary Care Provider [phone] Reason for Visit * Reason Onset Date Comments Error 02/26/2020 Encounter Details Date Type Department Care Team Description 02/26/2020 Telephone Adult [address] [address] Elda Acosta MD Error Social History Tobacco Use Types Packs/Day Years [...] week 09/13/2020 How often do you attend zoroastrian or judaism serv ices? Not asked Do you belong to any clubs o r organizations such as zoroastrian groups, unions, fraternal or athletic groups, or [...] encounter Miscellaneous Notes * Telephone Encounter - Annie Venkat - 02/26/2020 10:04 AM EDT documented in this encounter Plan of Treatment Not on file documented as of this encounter Visit Diagnoses Not on filedocumented in this encounter Care Teams Insurance Agency Manager Relationship Specialty Start Date End Date Elda Acosta MD PCP - General Internal Medicine 02/27/19 12/29/20 Melissa Bailey MD [address] [place] [address] PCP - General Internal Medicine 12/30/20 documented as of this encounter
--- OUTSIDE RECORDS SUMMARY | 2024-09-11 11:32 | XMS_ITS | Encounter Summary ---
Author Organization [facility] Address [address] [place] [address] Care Team Providers Care Recorder Of Deeds Name Role Phone Elda Acosta MD Primary Care Provider Kandace Bailey Ch MD Primary Care Provider [phone] Encounter Details Date Type Department Care Team Description 09/04/2019 Md Allergy Immunology Report Medical Records [address] [place] [id number] Abstract, Provider Social History Tobacco Use Types [...] week 09/13/2020 How often do you attend roman catholic or jehovah's witness serv ices? Not asked Do you belong to any clubs o r organizations such as roman catholic groups, unions, fraternal or athletic groups, or [...] on filedocumented in this encounter Care Teams Recorder Of Deeds Relationship Specialty Start Date End Date Elda Acosta MD PCP - General Internal Medicine 02/27/19 12/29/20 Melissa Bailey MD [address] [place] [address] PCP - General Internal Medicine 12/30/20 documented as of this encounter
== END 2024-09-11 10:04 | disposition home or self-care (01) ==
LOC: HO.HOS 09:38
PROVIDERS: PCP Internal Medicine; Visit Provider Physician Assistant
DX: T14.8XXA Other injury of unspecified body region, initial encounter (principal); S50.02XA Contusion of left elbow, initial encounter; W00.0XXA Fall on same level due to ice and snow, initial encounter; Z04.2 Encounter for examination and observation following work accident
CPT/HCPCS: 99213

== ENCOUNTER → 2024-09-11 09:40 | Outpatient (BNV) | payer OTHER, SELFPAY | PROVIDERS: Visit Provider Radiology Diagnostic Radiology | DX: M25.522 Pain in left elbow (principal) | CPT/HCPCS: 73080 ==